=== PATIENT | male | born 1965 | race Caucasian/White ===

== ENCOUNTER → 2018-06-19 01:21 | Outpatient (CLI) | payer BC, SELFPAY | PROVIDERS: PCP Family Medicine; Visit Provider Family Medicine | DX: R69 Illness, unspecified (principal) | CPT/HCPCS: 82565 ==

== ENCOUNTER 2018-12-13 10:23 | Outpatient (REF) | payer BC, SELFPAY ==
[2018-12-13 20:49] LABS: ALT 54 U/L (12-78); AST 30 U/L (15-37); Albumin 3.8 g/dL (3.4-5.0); Alkaline Phosphatase 77 U/L (46-116); Anion Gap 11.8 mmol/L (3-11); BUN 18 mg/dL (7-18); Bilirubin, Total 0.7 mg/dL (0.2-1.0); CO2 27.2 mmol/L (21.0-32.0); CREATININE 0.85 mg/dL (0.70-1.30); Chloride 100 mmol/L (98-107); Cholesterol 170 mg/dL (50-200); Glucose 101 mg/dL (70-100); HDL Cholesterol 46 mg/dL (40-60); LDL CHOLESTEROL 108 mg/dL (<100); Potassium 4.3 mmol/L (3.5-5.1); Sodium 139 mmol/L (136-145); Triglyceride 72 mg/dL (30-150)
== END 2018-12-13 10:43 ==
LOC: NCHCN 10:23
PROVIDERS: PCP Family Medicine; Visit Provider Family Medicine
DX: E78.5 Hyperlipidemia, unspecified (principal); I10 Essential (primary) hypertension; K21.9 Gastro-esophageal reflux disease without esophagitis
CPT/HCPCS: 80053; 80061; 83721

== ENCOUNTER 2019-03-21 15:28 | Outpatient (REF) | payer BC, SELFPAY ==
[2019-03-21 19:17] LABS: Bilirubin Negative (Negative); Blood Trace-intact (Negative); Clarity Clear; Glucose Negative (Negative); Ketones Negative (Negative); Leukocyte Esterase Negative (Negative); Nitrite Negative (Negative); pH 6.5 (5-8)
[2019-03-21 19:28] LABS: Bacteria Negative HPF (Negative); C & S Indicated? No; Casts Negative LPF (Negative); Crystals Negative HPF (Negative); Epithelial Cells Rare HPF (Negative); Mucus Negative (Negative); RBC 0-2 (0-2); WBC 0-2 HPF (0-5)
[2019-03-21 19:34] LABS: Abs Immature Grans 0.01 k/cumm (0.0-0.09); Absolute Basophil Count 0.01 k/cumm (0.0-0.2); Absolute Eosinophil Count 0.05 k/cumm (0.0-0.7); Absolute Lymphocyte Count 1.76 k/cumm (1.2-3.4); Absolute Monocyte Count 0.46 k/cumm (0.11-0.7); Basophils % 0.1; Eosinophils % 0.7; HGB 16.1 g/dL (13.5-17.5); Immature Grans % 0.1; Lymphocytes % 24.8; Mean Corpuscular Hemoglobin 30.7 pg (27.0-33.0); Mean Corpuscular Volume 87.6 fL (80-95); Mean Platelet Volume 10.1 fL (8.0-11.0); Monocytes % 6.5; Neutrophils % 67.8; Platelet Count 159 x1000/uL (130-400); RBC 5.25 m/cumm (4.50-6.00); RBC Distribution Width 12.7 % (11.8-14.1); White Blood Cell Count 7.09 k/cumm (4.4-10.8)
[2019-03-21 19:52] LABS: Anion Gap 11.4 mmol/L (3-11); BUN 21 mg/dL (7-18); CO2 26.6 mmol/L (21.0-32.0); Calcium 9.2 mg/dL (8.5-10.1); Chloride 101 mmol/L (98-107); Glucose 106 mg/dL (70-100); Potassium 3.7 mmol/L (3.5-5.1); Sodium 139 mmol/L (136-145)
== END 2019-03-21 15:48 ==
LOC: NCHCN 15:28
PROVIDERS: PCP Family Medicine; Visit Provider Physician Assistant Medical
DX: R31.21 Asymptomatic microscopic hematuria (principal)
CPT/HCPCS: 80048; 81003; 81015; 85025

== ENCOUNTER 2019-04-10 00:52 | Outpatient (CLI) | payer BC, SELFPAY ==
--- NOTE | 2019-04-10 09:01 | DI.US_ITS ---
SYMPTOM/DIAGNOSIS: ASYMPTOMATIC MICROSCOPIC HEMATURIA, R31.21 RENAL ULTRASOUND: The right kidney measures 14.6 cm. There is a small region of reflectivity involving the lower pole of the right kidney which likely represents a non obstructing calculus. The left kidney measures 14.4 cm. and is unremarkable. The prevoid bladder contains 284 cc's. The postvoid bladder contains 29 cc's. The prostate is somewhat enlarged at 46 cc's. SUMMARY: Non obstructing left nephrolithiasis is demonstrated. There is mild enlargement of the prostate.
== END 2019-04-10 01:12 ==
PROVIDERS: PCP Family Medicine; Visit Provider Physician Assistant Medical
DX: R31.21 Asymptomatic microscopic hematuria (principal); N20.0 Calculus of kidney; N40.0 Benign prostatic hyperplasia without lower urinary tract symptoms
CPT/HCPCS: 76770

== ENCOUNTER 2019-09-22 08:34 | Outpatient (REF) | payer BC, SELFPAY ==
[2019-09-22 21:53] LABS: Abs Immature Grans 0.02 k/cumm (0.0-0.09); Absolute Basophil Count 0.01 k/cumm (0.0-0.2); Absolute Eosinophil Count 0.08 k/cumm (0.0-0.7); Absolute Lymphocyte Count 1.53 k/cumm (1.2-3.4); Absolute Monocyte Count 0.64 k/cumm (0.11-0.7); Absolute Neutrophil Count 4.86 k/cumm (1.2-6.7); Basophils % 0.1; Eosinophils % 1.1; HCT 44.4 % (40.0-50.0); HGB 15.4 g/dL (13.5-17.5); Immature Grans % 0.3; Lymphocytes % 21.4; Mean Corp. HGB Concentration 34.7 g/dL (32.0-36.0); Mean Corpuscular Hemoglobin 30.4 pg (27.0-33.0); Mean Corpuscular Volume 87.7 fL (80-95); Mean Platelet Volume 9.8 fL (8.0-11.0); Neutrophils % 68.1; Platelet Count 177 x1000/uL (130-400); RBC 5.06 m/cumm (4.50-6.00); RBC Distribution Width 12.8 % (11.8-14.1); White Blood Cell Count 7.14 k/cumm (4.4-10.8)
[2019-09-22 22:14] LABS: ALT 58 U/L (16-63); AST 32 U/L (15-37); Albumin 3.9 g/dL (3.4-5.0); Alkaline Phosphatase 78 U/L (46-116); Anion Gap 9.4 mmol/L (3-11); BUN 18 mg/dL (7-18); Bilirubin, Total 0.5 mg/dL (0.2-1.0); CO2 27.6 mmol/L (21.0-32.0); CREATININE 0.91 mg/dL (0.70-1.30); Chloride 102 mmol/L (98-107); Glucose 96 mg/dL (70-100); Potassium 4.1 mmol/L (3.5-5.1); Sodium 139 mmol/L (136-145); Total Protein 7.7 g/dL (6.4-8.2)
== END 2019-09-22 08:54 ==
LOC: NCHCN 08:34
PROVIDERS: PCP Family Medicine; Visit Provider Nurse Practitioner Family
DX: L40.50 Arthropathic psoriasis, unspecified (principal); M54.9 Dorsalgia, unspecified; G54.0 Brachial plexus disorders
CPT/HCPCS: 80053; 85025

== ENCOUNTER 2019-09-29 16:18 | Outpatient (REF) | payer BC, SELFPAY ==
[2019-09-29 21:29] LABS: Uric Acid 7.6 mg/dL (3.5-7.2)
== END 2019-09-29 16:38 ==
LOC: NCHCN 16:18
PROVIDERS: PCP Family Medicine; Visit Provider Nurse Practitioner Family
DX: M10.9 Gout, unspecified (principal)
CPT/HCPCS: 84550

== ENCOUNTER 2022-05-23 16:49 | Outpatient (REF) | payer BC, SELFPAY ==
[2022-05-23 20:17] LABS: Iron 117 ug/dL (65-175); Total Iron Binding Capacity 331 ug/dL (250-450); Transferrin Sat 35 % (20-55)
== END 2022-05-23 16:50 | disposition home or self-care (01) ==
LOC: NCHCN 16:49
PROVIDERS: PCP Family Medicine; Visit Provider Nurse Practitioner Family
DX: R78.89 Finding of other specified substances, not normally found in blood (principal)
CPT/HCPCS: 83540; 83550

== ENCOUNTER 2023-03-21 12:14 | Outpatient (REF) | payer BC, SELFPAY ==
[2023-03-21 14:06] LABS: HCT 43.3 % (40.0-50.0); HGB 14.7 g/dL (13.5-17.5); MCH 30.2 pg (27.0-33.0); MCHC 33.9 % (32.0-36.0); MCV 89 fL (80-95); MPV 9.7 fL (8.0-11.0); Platelet Count 170 10^3/uL (130-400); RBC 4.87 10^6/uL (4.36-5.78); RDW 12.1 % (11.8-14.1); RDW-SD 39.1 fL; WBC 6.89 10^3/uL (4.4-10.8)
[2023-03-21 14:46] LABS: ALT 41 U/L (16-63); AST 20 U/L (15-37); Albumin 3.9 g/dL (3.4-5.0); Alkaline Phosphatase 89 U/L (46-116); BUN 22 mg/dL (7-18); Bilirubin, Total 0.3 mg/dL (0.2-1.0); Calculated LDL 95 mg/dL (<100); Chloride 104 mmol/L (98-107); Cholesterol 152 mg/dL (<200); Estimated GFR 87.78 (mL/min/1.73m2); Ferritin 952 ng/mL (26-388); Glucose 105 mg/dL (74-106); HDL Cholesterol 41 mg/dL (40-60); Potassium 4.3 mmol/L (3.5-5.1); Sodium 142 mmol/L (136-145); Total Protein 7.7 g/dL (6.4-8.2); Triglyceride 83 mg/dL (<150)
[2023-03-22 09:09] LABS: Iron 124 ug/dL (65-175)
== END 2023-03-21 12:15 | disposition home or self-care (01) ==
LOC: NCHCN 12:14
PROVIDERS: PCP Family Medicine; Visit Provider Nurse Practitioner Family
DX: L40.50 Arthropathic psoriasis, unspecified (principal); I10 Essential (primary) hypertension; E78.5 Hyperlipidemia, unspecified; R78.89 Finding of other specified substances, not normally found in blood
CPT/HCPCS: 80053; 80061; 85027; 82728; 83540

== ENCOUNTER 2023-03-27 15:19 | Outpatient (REF) | payer BC, SELFPAY ==
[2023-03-27 16:30] LABS: Total Iron Binding Capacity 300 ug/dL (250-450)
[2023-04-01 18:21] LABS: Result Summary NEGATIVE; Specimen WB Whole Blood
== END 2023-03-27 15:20 | disposition home or self-care (01) ==
LOC: NCHCN 15:19
PROVIDERS: PCP Family Medicine; Visit Provider Nurse Practitioner Family
DX: R78.89 Finding of other specified substances, not normally found in blood (principal)
CPT/HCPCS: 81256; 83550

== ENCOUNTER 2024-02-07 19:04 | Outpatient (REF) | payer BC, SELFPAY ==
[2024-02-07 16:59] LABS: Calculated LDL 91 mg/dL (<100); Cholesterol 168 mg/dL (<200); HDL Cholesterol 39 mg/dL (40-60); Triglyceride 190 mg/dL (<150)
[2024-02-07 22:39] LABS: PSA, Screening 1.1 ng/mL (<=3.5)
== END 2024-02-07 19:05 | disposition home or self-care (01) ==
LOC: NCHCN 19:04
PROVIDERS: PCP Family Medicine; Referring Provider Nurse Practitioner Family; Visit Provider Nurse Practitioner Family
DX: R73.03 Prediabetes (principal); E78.5 Hyperlipidemia, unspecified; Z12.5 Encounter for screening for malignant neoplasm of prostate
CPT/HCPCS: 80061; 84153; 83036

== ENCOUNTER 2024-05-14 13:25 | Outpatient (REF) | payer BC, SELFPAY ==
[2024-05-14 22:35] LABS: HCT 43.8 % (40.0-50.0); HGB 15.2 g/dL (13.5-17.5); MCH 31.3 pg (27.0-33.0); MCHC 34.7 % (32.0-36.0); MCV 90 fL (80-95); MPV 9.6 fL (8.0-11.0); Platelet Count 152 10^3/uL (130-400); RBC 4.85 10^6/uL (4.36-5.78); RDW 12.1 % (11.8-14.1); RDW-SD 40.4 fL; WBC 7.16 10^3/uL (4.4-10.8)
[2024-05-14 22:36] LABS: ALT 53 U/L (16-63); AST 37 U/L (15-37); Albumin 4.1 g/dL (3.4-5.0); Alkaline Phosphatase 80 U/L (46-116); Anion Gap 9.4 mmol/L (3-11); BUN 17 mg/dL (7-18); Bilirubin, Total 0.55 mg/dL (0.2-1.0); CO2 27.6 mmol/L (21.0-32.0); Calcium 9.2 mg/dL (8.5-10.1); Chloride 102 mmol/L (98-107); Estimated GFR 87.24 (mL/min/1.73m2); Glucose 102 mg/dL (74-106); Potassium 4.2 mmol/L (3.5-5.1); Sodium 139 mmol/L (136-145); Total Protein 7.6 g/dL (6.4-8.2); Uric Acid 7.8 mg/dL (3.5-7.2)
[2024-05-14 22:56] LABS: Bilirubin Negative (Negative); Blood Moderate (Negative); Clarity Clear (Clear); Glucose Negative (Negative); Ketones Negative (Negative); Leukocyte Esterase Negative (Negative); Nitrite Negative (Negative); Urobilinogen 0.2 mg/dL (Up to 0.2)
[2024-05-14 23:06] LABS: Bacteria Negative HPF (Negative); C & S Indicated? No; Casts Negative LPF (Negative); Crystals Negative HPF (Negative); Epithelial Cells Rare HPF (Negative); Mucus Negative (Negative); WBC Negative HPF (0-5)
[2024-05-16 18:42] LABS: PSA, Screening 1.1 ng/mL (<=3.5)
== END 2024-05-14 13:26 | disposition home or self-care (01) ==
LOC: NCHCN 13:25
PROVIDERS: PCP Family Medicine; Visit Provider Nurse Practitioner Family
DX: Z00.00 Encounter for general adult medical examination without abnormal findings (principal); R73.03 Prediabetes; M10.9 Gout, unspecified; R31.29 Other microscopic hematuria; Z12.5 Encounter for screening for malignant neoplasm of prostate
CPT/HCPCS: 80053; 84153; 85027; 81003; 81015; 83036; 84550

== ENCOUNTER 2024-11-25 16:55 | Outpatient (REF) | payer BC, SELFPAY ==
[2024-11-25 21:36] LABS: HCT 45.3 % (40.0-50.0); HGB 15.5 g/dL (13.5-17.5); MCHC 34.2 % (32.0-36.0); MCV 91 fL (80-95); MPV 9.5 fL (8.0-11.0); Platelet Count 156 10^3/uL (130-400); RDW 12.2 % (11.8-14.1); RDW-SD 40.2 fL; WBC 7.07 10^3/uL (4.4-10.8)
[2024-11-25 21:45] LABS: ALT 39 U/L (16-63); AST 23 U/L (15-37); Alkaline Phosphatase 76 U/L (46-116); Anion Gap 6.7 mmol/L (3-11); BUN 23 mg/dL (7-18); Bilirubin, Total 0.45 mg/dL (0.2-1.0); CO2 28.3 mmol/L (21.0-32.0); CREATININE 1.1 mg/dL (0.70-1.30); Calcium 9.5 mg/dL (8.5-10.1); Calculated LDL 101 mg/dL (<100); Chloride 104 mmol/L (98-107); Cholesterol 171 mg/dL (<200); Estimated GFR 77.33 (mL/min/1.73m2); Glucose 119 mg/dL (74-106); HDL Cholesterol 46 mg/dL (40-60); Potassium 3.9 mmol/L (3.5-5.1); Sodium 139 mmol/L (136-145); Triglyceride 124 mg/dL (<150)
[2024-11-25 21:56] LABS: Hemoglobin A1C 6.3 % (<5.7)
== END 2024-11-25 16:56 | disposition home or self-care (01) ==
LOC: NCHCN 16:55
PROVIDERS: PCP Family Medicine; Visit Provider Nurse Practitioner Family
DX: E66.9 Obesity, unspecified (principal); I10 Essential (primary) hypertension; Z51.81 Encounter for therapeutic drug level monitoring
CPT/HCPCS: 80053; 80061; 85027; 83036